=== PATIENT | female | born 1985 | race Caucasian/White ===

== ENCOUNTER 2016-12-02 17:12 | Inpatient (IN) | payer BC ==
[2016-12-02] MEDS ORDERED: Terbutaline 1 MG/ML SDV SUBCUT PRN (17:31)
[2016-12-02] MEDS ORDERED: Methylergonovine 0.2 MG/1 ML Amp IM PRN (17:37)
[2016-12-02] MEDS ORDERED: Nalbuphine 10 MG/1 ML Vial IVPUSH PRN (17:37)
[2016-12-02] MEDS ORDERED: Carboprost Tromethamine 250 MCG/1 ML Amp IM PRN (17:37)
[2016-12-02] MEDS ORDERED: Sodium Chloride 0.9% 2.5 ML Syringe FLUSH PRN (17:37)
[2016-12-02] MEDS ORDERED: Water For Irrigation,Sterile 1,000 ML Container IRR PRN (17:37)
[2016-12-02] MEDS ORDERED: Misoprostol 200 MCG Tab PO PRN (17:37)
[2016-12-02] MEDS ORDERED: Lidocaine 1% 50 ML MDV INJECT PRN (17:37)
[2016-12-02] MEDS ORDERED: Sodium Chloride 0.9% 10 ML Syringe FLUSH PRN (17:37)
[2016-12-02] MEDS ORDERED: Misoprostol 25 MCG (1/4 of 100 MCG) Tab VAG SCH (17:45)
[2016-12-02] MEDS ORDERED: Oxytocin/Lactated Ringers 30 UNIT/500 ML BAG IV SCH (17:45)
[2016-12-02] MEDS ORDERED: Labetalol 100 MG/20 ML MDV IVPUSH PRN (19:29)
[2016-12-03] MEDS: Misoprostol 25 MCG (1/4 of 100 MCG) Tab VAG PRN ×2 (00:16→04:16)
[2016-12-03] MEDS: Lactated Ringers 1,000 ML IV SCH ×3 (07:35→15:01)
[2016-12-03] MEDS: Butorphanol 1 MG/ML SDV IVPUSH PRN ×3 (10:03→14:29)
[2016-12-03] MEDS ORDERED: Ropivacaine HCl/PF 100 ML ONE ×2 (15:26→21:46)
[2016-12-03] MEDS ORDERED: fentaNYL 100 MCG/2 ML SDV ONE (15:26)
--- NOTE | 2016-12-03 15:29 | PCM.PREANE ---
Preanesthetic Assessment - ANESTHESIA/TRANSFUSION/FAMILY HX Anesthesia/Transfusion History: Prior Anesthesia - REVIEW OF SYSTEMS Constitutional: Reports: no symptoms BRICK SETTER: Reports: no symptoms Respiratory: Reports: no symptoms Cardiovascular: Reports: no symptoms GI: Reports: no symptoms Other: Reports: none - PHYSICAL ASSESSMENT Height: 5 ft 3 in Weight: 117.197 kg ASA Class: 2 Mental Status: alert & oriented x3 Airway Class: Mallampati = 2 Dentition: Reports: normal dentition Thyro-Mental Finger Breadths: 3 Mouth Opening Finger Breadths: 3 ROM/Head Extension: full Respiratory Status: lungs clear to auscultation bilaterally Cardiovascular Status: regular rate & rhythm, normal S1, S2, no murmur, blood pressure WNL - LAB Values: Laboratory Last Values WBC 10.65 K/uL (4.0-11.0) 12/02/16 17:55 RBC 4.49 M/uL (4.30-5.90) 12/02/16 17:55 Hgb 12.3 g/dL (12.0-16.0) 12/02/16 17:55 Hct 37.7 % (36.0-46.0) 12/02/16 17:55 MCV 84.0 fL (80.0-98.0) 12/02/16 17:55 MCH 27.4 pg (27.0-32.0) 12/02/16 17:55 MCHC 32.6 g/dL (31.0-37.0) 12/02/16 17:55 RDW Std Deviation 45.2 fl (28.0-62.0) 12/02/16 17:55 RDW Coeff of Thereas 15 % (11.0-15.0) 12/02/16 17:55 Plt Count 185 K/uL (150-400) 12/02/16 17:55 MPV 11.10 fL (7.40-12.00) 12/02/16 17:55 Nucleated RBC % 0.0 /100WBC 12/02/16 17:55 Nucleated RBCs # 0 K/uL 12/02/16 17:55 Urine Color YELLOW 12/02/16 18:20 Urine Appearance CLEAR 12/02/16 18:20 Urine pH 5.5 (5.0-8.0) 12/02/16 18:20 Ur Specific [place] >= 1.030 (1.001-1.035) 12/02/16 18:20 Urine Protein NEGATIVE mg/dL (NEGATIVE) 12/02/16 18:20 Urine Glucose (UA) NEGATIVE mg/dL (NEGATIVE) 12/02/16 18:20 Urine Ketones TRACE mg/dL (NEGATIVE) H 12/02/16 18:20 Urine Occult Blood NEGATIVE (NEGATIVE) 12/02/16 18:20 Urine Nitrite NEGATIVE (NEGATIVE) 12/02/16 18:20 Urine Bilirubin NEGATIVE (NEGATIVE) 12/02/16 18:20 Urine Urobilinogen 0.2 EU/dL (<2.0) 12/02/16 18:20 Ur Leukocyte Esterase NEGATIVE (NEGATIVE) 12/02/16 18:20 Urine RBC 0-1 (0-2/HPF) 12/02/16 18:20 Urine WBC 0-3 (0-5/HPF) 12/02/16 18:20 Ur Epithelial Cells FEW (NONE-FEW) 12/02/16 18:20 Urine Bacteria FEW (NEGATIVE) 12/02/16 18:20 Urine Mucus LIGHT (NONE-MOD) 12/02/16 18:20 Blood Type A POSITIVE 12/02/16 17:55 Antibody Screen NEGATIVE 12/02/16 17:55 - ALLERGIES Allergies/Adverse Reactions: Allergies Allergy/AdvReac Type Severity Reaction Status Date / Time No Known Allergies Allergy Verified 08/17/16 23:06 - ANESTHESIA PLAN Anesthesia Type Planned: epidural - ACKNOWLEDGEMENTS Pt an appropriate candidate for the planned anesthesia: Yes Alternatives and risks of anesthesia discussed w pt/guardian: Yes Pt/Guardian understands and agree with anesthesia plan: Yes PreAnesthesia Questionnaire HEENT History: Reports: None Cardiovascular History: Reports: None Respiratory History: Reports: None Gastrointestinal History: Reports: None Genitourinary History: Reports: None : 1 Para: 0 LMP (Approximate): Musculoskeletal History: Reports: None Neurological History: Reports: Concussion Psychiatric History: Reports: None Endocrine/Metabolic History: Reports: Obesity/BMI 30+ Hematologic History: Reports: None Immunologic History: Reports: None Oncologic (Cancer) History: Reports: None Dermatologic History: Reports: None - Infectious Disease History Infectious Disease History: Reports: None - Past Surgical History Cardiovascular Surgical History: Reports: None - SUBSTANCE USE Smoking Status *Q: Never Smoker Second Hand Smoke Exposure: No Days Per Week of Alcohol Use: 1 Number of Drinks Per Day: 2 Total Drinks Per Week: 2 Recreational Drug Use History: No - HOME MEDS Home Medications: Home Meds Control Pills DAILY 06/25/14 [History] Azithromycin [Zithromax] 250 mg PO DAILY #4 tablet 08/17/16 [Rx] Iron 08/17/16 [History] PNV95/Ferrous Fumarate/FA [ Tablet] 08/17/16 [History] - CURRENT (IN HOUSE) MEDS Current Meds: Current Medications Butorphanol Tartrate (Stadol) 1 mg IVPUSH Q1H PRN PRN Reason: Pain Last Admin: 12/03/16 14:29 Dose: 1 mg Carboprost Tromethamine (Hemabate Ds) 250 mcg IM ASDIRECTED PRN PRN Reason: Post Hemorrhage Oxytocin/Lactated Ringer's (Pitocin In Lr 30 Units/500 Ml) 30 unit in 500 mls @ 2 mls/hr IV TITRATE [place]; 2 MUNITS/MIN PRN Reason: Protocol Last Titration: 12/03/16 14:58 Dose: 10 munits/min, 10 mls/hr Lactated Ringer's (Ringers, Lactated) 1,000 mls @ 150 mls/hr IV ASDIRECTED [place] Last Admin: 12/03/16 15:01 Dose: 150 mls/hr Labetalol HCl (Normodyne) 20 mg IVPUSH Q10M PRN PRN Reason: Hypertension Lidocaine HCl (Xylocaine 1%) 50 ml INJECT .ONCE PRN PRN Reason: Laceration repair Methylergonovine Maleate (Methergine) 0.2 mg IM ASDIRECTED PRN PRN Reason: Post Hemorrhage Misoprostol (Cytotec) 25 mcg VAG .ONCE [place] Last Admin: 12/02/16 20:13 Dose: 25 mcg Misoprostol (Cytotec) 25 mcg VAG Q4H PRN PRN Reason: Cervical Ripening Stop: 12/03/16 21:32 Last Admin: 12/03/16 04:16 Dose: 25 mcg Misoprostol (Cytotec) 200 mcg PO .ONCE PRN PRN Reason: Post Hemorrhage Sodium Chloride (Saline Flush) 10 ml FLUSH ASDIRECTED PRN PRN Reason: Keep Vein Open Sodium Chloride (Saline Flush) 2.5 ml FLUSH ASDIRECTED PRN PRN Reason: Keep Vein Open Sterile Water (Sterile Water For Irrigation) 1,000 ml IRR ASDIRECTED PRN PRN Reason: delivery Terbutaline Sulfate (Brethine) 0.25 mg SUBCUT ASDIRECTED PRN PRN Reason: Tacysystole Discontinued Medications Nalbuphine HCl (Nubain) 10 mg IVPUSH Q1H PRN PRN Reason: Pain (severe 7-10) Stop: 12/02/16 19:38
[2016-12-04] MEDS ORDERED: Bupivacaine 0.5% 10 ML SDV ONE (00:47)
[2016-12-04] MEDS ORDERED: Sodium Chloride 0.9% 20 ML ONE (00:57)
[2016-12-04] MEDS ORDERED: ceFAZolin 1 GM Vial ONE (00:57)
[2016-12-04] MEDS ORDERED: Oxytocin 10 Units/1 ML SDV ONE (00:59)
[2016-12-04] MEDS ORDERED: Ondansetron 4 MG/2 ML SDV ONE (00:59)
[2016-12-04] MEDS ORDERED: Morphine PF 10 MG/10 ML SDV ONE (01:21)
[2016-12-04] MEDS ORDERED: fentaNYL 100 MCG/2 ML SDV ONE ×3 (01:21→02:48)
[2016-12-04] MEDS ORDERED: Midazolam 1 MG/ML 2 ML SDV ONE (01:45)
[2016-12-04] MEDS ORDERED: Propofol 200 MG/20 ML SDV ONE (02:04)
[2016-12-04] MEDS ORDERED: Phenylephrine/Normal Saline 100 MCG/ML 10 ML Syringe ONE (02:23)
[2016-12-04] MEDS ORDERED: diphenhydrAMINE 50 MG/ML SDV IVPUSH PRN ×2 (02:36→02:39)
[2016-12-04] MEDS ORDERED: Sodium Chloride 0.9% 10 ML Syringe FLUSH PRN (02:36)
[2016-12-04] MEDS ORDERED: Lanolin 100% Cream 7 GM Tube TOP PRN (02:36)
[2016-12-04] MEDS ORDERED: Ondansetron 4 MG/2 ML SDV IVPUSH PRN (02:36)
[2016-12-04] MEDS ORDERED: Acetaminophen/oxyCODONE 325-5 MG Tab PO PRN (02:36)
[2016-12-04] MEDS ORDERED: Sodium Chloride 0.9% 2.5 ML Syringe FLUSH PRN (02:36)
[2016-12-04] MEDS ORDERED: Measles, Mumps & Rubella Vaccine 0.5 ML SDV SUBCUT ONE (02:36)
[2016-12-04] MEDS ORDERED: Bisacodyl 10 MG Supp RECTAL PRN (02:36)
[2016-12-04] MEDS ORDERED: Naloxone 0.4 MG/ML Syringe IVPUSH PRN (02:39)
[2016-12-04] MEDS ORDERED: fentaNYL 100 MCG/2 ML SDV IVPUSH PRN (02:42)
[2016-12-04] MEDS ORDERED: Lactated Ringers 1,000 ML IV SCH (02:45)
--- NOTE | 2016-12-04 02:49 | PCM.OPNOTE ---
- General Post-Op/Procedure Note Date of Surgery/Procedure: 12/04/16 Operative Procedure(s): Primary section Findings: Male infant, OP, cord adjacent to the face, Apgars 9 and 9. Normal uterus, tubes and ovaries. Grossly normal placenta with 3 vessel cord. Pre Op Diagnosis: 1) 40 weeks 2) intolerance to labor Post-Op Diagnosis: Same Anesthesia Technique: Epidural Primary Surgeon: Sparkle Cohen Fluid Replacement, Intraop: 1,000 Output, Urine Amount: 250 EBL in mLs: 500 Complications: None Condition: Good Free Text/Narrative:: Intake & Output 12/03/16 12/03/16 12/04/16 14:59 22:59 06:59 Output Total 250 Balance -250
[2016-12-04] MEDS: fentaNYL 100 MCG/2 ML SDV IVPUSH PRN ×2 (02:50→03:00)
[2016-12-04] MEDS: Ketorolac 30 MG/ML SDV IVPUSH SCH ×4 (03:07→21:59)
--- NOTE | 2016-12-04 03:48 | OR ---
SURGEON: Sparkle Cohen MD DATE OF PROCEDURE: 12/04/2016 PREOPERATIVE DIAGNOSES: 1. Term at 40 weeks gestation. 2. intolerance to labor. POSTOPERATIVE DIAGNOSES: 1. Term at 40 weeks gestation. 2. intolerance to labor. 3. Delivered. PROCEDURE: Primary low transverse section via Pfannenstiel. ANESTHESIA: Epidural. ESTIMATED BLOOD LOSS: 500 mL. IV FLUID: 1000 mL of crystalloid. URINE OUTPUT: 250 mL clear at the end of the procedure. FINDINGS: Male , weight 4050 g. Deflexed occipito- posterior position, with cord laying adjacent to his face. Apgars 9 and 9 at 1 and 5 minutes respectively. Normal-appearing uterus, tubes, and ovaries. Grossly normal placenta with three-vessel cord. INDICATION: The patient is a 31-year-old primigravida admitted for induction of labor for polyhydramnios and suspected macrosomia. Unable to go up with oxytocin due to recurrent prolonged decelerations variables and lates despite intrapartum resuscitation and turning the oxytocin off a number of times. Maximum dose of Pitocin was 18mu/min with a maximum dilatation of 5cm section was called for intolerance to labor. Appropriate consent obtained PROCEDURE IN DETAIL: The patient was taken to the operating room, where her epidural was re-dosed, tested and found to be adequate. She was then prepped and draped in dorsal supine position with a leftward tilt. SCDs in place. Ancef 2 g administered. Appropriate time-out held. A skin incision was made with the scalpel and carried through to the underlying layer of fascia with the Bovie. The fascia was extended laterally with the Bovie. Superior aspect of the fascial incision was grasped with 2 Rick clamps, elevated, the underlying rectus muscle dissected off with the Bovie. Attention was turned to the inferior aspect of this fascial incision, which was also elevated with Rick clamps, and the rectus muscle dissected off with the Bovie. The rectus muscle was in the midline and the parietal peritoneum was reached, entered sharply with the Metzenbaum scissors. This peritoneal layer was then extended upwards and downwards with good visualization of the bladder and other internal organs. An Caleb self-retaining retractor was then placed into the abdominal cavity. The vesicouterine peritoneum identified, picked up with pickups, and entered sharply with Metzenbaum and the bladder flap was created digitally. The lower uterine segment was incised in a transverse fashion with the scalpel, extended upwards and downwards by manual stretching. was found to be deflexed occipital posterior position. The head was delivered atraumatically followed by the shoulders and the rest of the baby. The baby was vigorous and cried spontaneously at . Cord was double clamped and cut and the infant was handed over to the awaiting men's golf coach on-call, Dr. Ahuja. Cord blood and gas samples were obtained. The placenta was delivered spontaneously by massage. Uterus was cleaned of all clots and debris. The hysterotomy site was closed in 2 layers using 0 Vicryl suture, first layer was closed in a running locked fashion and a second imbricating layer was performed to obtain excellent hemostasis. Two hemostatic stitches were placed in the lower uterine segment for further hemostasis. The hysterotomy site was found to have excellent hemostasis. Copious irrigation was performed. Tubes and ovaries were examined. The Caleb was removed from the abdominal cavity. Hysterotomy site was re-examined and found to be hemostatic. Peritoneal edges were identified and the peritoneum was closed with 2-0 Vicryl in a running fashion. The muscle was reapproximated with 3 mattress sutures. Subfascial tissue was irrigated and found to have excellent hemostasis. The fascia was closed with 0 Vicryl in a running fashion. The subcuticular layer was made hemostatic with the Bovie. The skin was then closed with 4-0 Monocryl using subcuticular stitches. The patient tolerated the procedure well and was taken to the recovery room in stable condition. Baby stable to nursery. LEONARDA / LUDIN /[id number] MAEGAN
--- NOTE | 2016-12-04 03:51 | PCM.POSTAN ---
POST ANESTHESIA ASSESSMENT - MENTAL STATUS Mental Status: alert, oriented - RESPIRATORY Respiratory Status: respiratory rate WNL, airway patent, O2 saturation stable - CARDIOVASCULAR CV Status: pulse rate WNL, blood pressure stable - GASTROINTESTINAL GI Status: no symptoms - POST OP HYDRATION Hydration Status: adequate & stable
[2016-12-04] MEDS: Docusate Sodium 100 MG Cap PO SCH ×2 (09:14→22:00)
--- NOTE | 2016-12-04 11:56 | PCM48HPAN ---
Post Anesthesia Note - EVALUATION WITHIN 48HRS OF ANESTHETIC Vital Signs in Normal Range: Yes Patient Participated in Evaluation: Yes Respiratory Function Stable: Yes Airway Patent: Yes Cardiovascular Function Stable: Yes Hydration Status Stable: Yes Pain Control Satisfactory: Yes Nausea and Vomiting Control Satisfactory: Yes Mental Status Recovered: Yes - COMMENTS/OBSERVATIONS Free Text/Narrative:: Pt doing well with no complaints.
[2016-12-05] MEDS: Ketorolac 30 MG/ML SDV IVPUSH SCH (04:12)
[2016-12-05] MEDS: Docusate Sodium 100 MG Cap PO SCH ×2 (09:00→22:42)
[2016-12-05] MEDS ORDERED: Ibuprofen 800 MG Tab PO PRN (09:00)
--- NOTE | 2016-12-05 09:05 | PCM.PNPP ---
- General Info Date of Service: 12/05/16 Functional Status: Reports: pain controlled, tolerating diet, ambulating, urinating - Review of Systems General: Denies: fever, weakness, fatigue, chills Pulmonary: Denies: shortness of breath, pleuritic chest pain, cough, sputum Cardiovascular: Denies: chest pain, palpitations, dyspnea on exertion Genitourinary: Denies: dysuria, flank pain Neurological: Denies: headache Psychiatric: Denies: depression, mood lability, anxiety - General Info Date of Service: 12/05/16 - Patient Data Vital Signs - most recent: Last Vital Signs Temp 36.9 C 12/05/16 04:00 Pulse 107 H 12/05/16 04:00 Resp 14 12/05/16 04:00 BP 133/78 12/05/16 04:00 Pulse Ox 95 12/05/16 04:00 Weight - most recent: 258 lb 6 oz I&O - last 24 hours: Intake & Output 12/04/16 12/05/16 12/05/16 22:59 06:59 14:59 Intake Total 990 Output Total 250 Balance 740 Lab Results - last 24 hrs: Laboratory Results - last 24 hr 12/05/16 Range/Units 05:09 Hgb 10.7 L (12.0-16.0) g/dL Hct 33.1 L (36.0-46.0) % Med Orders - Current: Current Medications Bisacodyl (Dulcolax) 10 mg RECTAL .ONCE PRN PRN Reason: Constipation Diphenhydramine HCl (Benadryl) 25 mg IVPUSH Q6H PRN PRN Reason: Itching or Nausea Docusate Sodium (Colace) 100 mg PO BID [facility] Last Admin: 12/05/16 09:00 Dose: 100 mg Emollient Ointment (Lansinoh Hpa) 0 gm TOP ASDIRECTED PRN PRN Reason: Sore Nipples Lactated Ringer's (Ringers, Lactated) 1,000 mls @ 125 mls/hr IV ASDIRECTED [facility] Last Admin: 12/04/16 08:30 Dose: 125 mls/hr Ibuprofen (Motrin) 800 mg PO Q8H PRN PRN Reason: mild pain or fever Ondansetron HCl (Zofran) 4 mg IVPUSH Q4H PRN PRN Reason: Nausea/Vomiting Oxycodone/Acetaminophen (Percocet 325-5 Mg) 1 tab PO Q4H PRN PRN Reason: Pain (moderate 4-6) Oxycodone/Acetaminophen (Percocet 325-5 Mg) 2 tab PO Q4H PRN PRN Reason: Pain (moderate 4-6) Sodium Chloride (Saline Flush) 10 ml FLUSH ASDIRECTED PRN PRN Reason: Keep Vein Open Last Admin: 12/04/16 16:02 Dose: 10 ml Sodium Chloride (Saline Flush) 2.5 ml FLUSH ASDIRECTED PRN PRN Reason: Keep Vein Open Discontinued Medications Bupivacaine HCl (Sensorcaine-Mpf 0.5%) Confirm Administered Dose 20 ml .ROUTE .STK-MED ONE Stop: 12/04/16 00:48 Last Admin: 12/04/16 08:19 Dose: Not Given Butorphanol Tartrate (Stadol) 1 mg IVPUSH Q1H PRN PRN Reason: Pain Last Admin: 12/03/16 14:29 Dose: 1 mg Carboprost Tromethamine (Hemabate Ds) 250 mcg IM ASDIRECTED PRN PRN Reason: Post Hemorrhage Cefazolin Sodium (Ancef) Confirm Administered Dose 2 gm .ROUTE .STK-MED ONE Stop: 12/04/16 00:58 Diphenhydramine HCl (Benadryl) 25 mg IVPUSH Q4H PRN PRN Reason: Itching Stop: 12/05/16 02:40 Fentanyl (Sublimaze) Confirm Administered Dose 100 mcg .ROUTE .STK-MED ONE Stop: 12/03/16 15:27 Last Admin: 12/04/16 08:18 Dose: Not Given Fentanyl (Sublimaze) Confirm Administered Dose 100 mcg .ROUTE .STK-MED ONE Stop: 12/04/16 01:22 Fentanyl (Sublimaze) Confirm Administered Dose 100 mcg .ROUTE .STK-MED ONE Stop: 12/04/16 01:34 Fentanyl (Sublimaze) 50 mcg IVPUSH Q5M PRN PRN Reason: Pain (severe 7-10) Stop: 12/04/16 04:00 Last Admin: 12/04/16 03:00 Dose: 50 mcg Fentanyl (Sublimaze) 50 mcg IVPUSH Q45M PRN PRN Reason: Pain (severe 7-10) Stop: 12/05/16 02:42 Fentanyl (Sublimaze) Confirm Administered Dose 100 mcg .ROUTE .STK-MED ONE Stop: 12/04/16 02:49 Last Admin: 12/04/16 08:17 Dose: Not Given Oxytocin/Lactated Ringer's (Pitocin In Lr 30 Units/500 Ml) 30 unit in 500 mls @ 2 mls/hr IV TITRATE [place]; 2 MUNITS/MIN PRN Reason: Protocol Last Titration: 12/04/16 00:26 Dose: 0 munits/min, 0 mls/hr Lactated Ringer's (Ringers, Lactated) 1,000 mls @ 150 mls/hr IV ASDIRECTED [place] Last Admin: 12/03/16 15:01 Dose: 150 mls/hr Ropivacaine (Naropin 0.2%) Confirm Administered Dose 100 mls @ as directed .ROUTE .STK-MED ONE Stop: 12/03/16 15:27 Last Admin: 12/04/16 08:18 Dose: Not Given Ropivacaine (Naropin 0.2%) Confirm Administered Dose 100 mls @ as directed .ROUTE .STK-MED ONE Stop: 12/03/16 21:47 Last Admin: 12/04/16 08:19 Dose: Not Given Sodium Chloride (Normal Saline) Confirm Administered Dose 20 mls @ as directed .ROUTE .STK-MED ONE Stop: 12/04/16 00:58 Ketorolac Tromethamine (Toradol) 30 mg IVPUSH Q6H [place] Stop: 12/05/16 03:01 Last Admin: 12/05/16 04:12 Dose: 30 mg Labetalol HCl (Normodyne) 20 mg IVPUSH Q10M PRN PRN Reason: Hypertension Lidocaine HCl (Xylocaine 1%) 50 ml INJECT .ONCE PRN PRN Reason: Laceration repair Measles/Mumps/Rubella Vaccine Live (M-M-R Ii Vaccine) 0.5 ml SUBCUT .ONCE ONE Stop: 12/04/16 02:37 Methylergonovine Maleate (Methergine) 0.2 mg IM ASDIRECTED PRN PRN Reason: Post Hemorrhage Midazolam HCl (Versed 1 Mg/Ml) Confirm Administered Dose 2 mg .ROUTE .STK-MED ONE Stop: 12/04/16 01:46 Misoprostol (Cytotec) 25 mcg VAG .ONCE [place] Last Admin: 12/02/16 20:13 Dose: 25 mcg Misoprostol (Cytotec) 25 mcg VAG Q4H PRN PRN Reason: Cervical Ripening Stop: 12/03/16 21:32 Last Admin: 12/03/16 04:16 Dose: 25 mcg Misoprostol (Cytotec) 200 mcg PO .ONCE PRN PRN Reason: Post Hemorrhage Morphine Sulfate (Duramorph Pf) Confirm Administered Dose 10 mg .ROUTE .STK-MED ONE Stop: 12/04/16 01:22 Nalbuphine HCl (Nubain) 10 mg IVPUSH Q1H PRN PRN Reason: Pain (severe 7-10) Stop: 12/02/16 19:38 Naloxone HCl (Narcan) 0.1 mg IVPUSH ONETIME PRN PRN Reason: Respiratory Depression Stop: 12/05/16 02:40 Ondansetron HCl (Zofran) Confirm Administered Dose 4 mg .ROUTE .STK-MED ONE Stop: 12/04/16 01:00 Oxytocin (Pitocin) Confirm Administered Dose 20 unit .ROUTE .STK-MED ONE Stop: 12/04/16 01:00 Phenylephrine HCl (Phenylephrine In Ns 100 Mcg/Ml) Confirm Administered Dose 1 mg .ROUTE .STK-MED ONE Stop: 12/04/16 02:24 Propofol (Diprivan 20 Ml) Confirm Administered Dose 200 mg .ROUTE .STK-MED ONE Stop: 12/04/16 02:05 Sodium Chloride (Saline Flush) 10 ml FLUSH ASDIRECTED PRN PRN Reason: Keep Vein Open Sodium Chloride (Saline Flush) 2.5 ml FLUSH ASDIRECTED PRN PRN Reason: Keep Vein Open Sterile Water (Sterile Water For Irrigation) 1,000 ml IRR ASDIRECTED PRN PRN Reason: delivery Terbutaline Sulfate (Brethine) 0.25 mg SUBCUT ASDIRECTED PRN PRN Reason: Tacysystole - Infant Interaction Infant Disposition, : [place] at Bedside Feeding: Breastfed ; Nursed Well, Continues to Breastfeed Support Person: - Recovery Exam Fundal Tone: Firm Fundal Level: 1 Fingerbreadths Below Umbilicus Fundal Placement: Midline Lochia Amount: Scant Lochia Color: Rubra/Red Perineum Description: Intact, Minimal Bruising/Swelling Episiotomy/Laceration: None Bladder Status: Voiding Urinary Elimination: Voided - Exam General: alert, oriented Lungs: Clear to auscultation, Normal respiratory effort Cardiovascular: regular rate, regular rhythm Abdomen: bowel sounds present, soft, no tenderness, no distension Extremities: no calf tenderness, edema Wound/Incisions: healing well Psy/Mental Status: alert, normal affect, normal mood - Problem List & Annotations (1) delivery delivered SNOMED Code(s): 939294645 Code(s): O82 - ENCOUNTER FOR DELIVERY WITHOUT INDICATION Status: Acute Current Visit: Yes - Problem List Review Problem List Initiated/Reviewed/Updated: Yes - My Orders Last 24 Hours: My Active Orders 12/04/16 09:00 Docusate Sodium [Colace] 100 mg PO BID 12/05/16 09:00 Ibuprofen [Motrin] 800 mg PO Q8H PRN - Assessment Assessment:: POD#1 s/p primary , stable and afebrile - Plan Plan:: Continue routine care and aim for discharge tomorrow
[2016-12-05] MEDS: Acetaminophen/oxyCODONE 325-5 MG Tab PO PRN ×3 (13:00→22:42)
[2016-12-06] MEDS: Acetaminophen/oxyCODONE 325-5 MG Tab PO PRN ×2 (04:57→09:27)
--- NOTE | 2016-12-06 08:00 | PCM.PNPP ---
- General Info Date of Service: 12/06/16 Functional Status: Reports: pain controlled, ambulating, urinating - Review of Systems General: Denies: fever, weakness, fatigue, malaise HEENT: Denies: headaches Pulmonary: Denies: shortness of breath, pleuritic chest pain, cough Cardiovascular: Denies: chest pain, palpitations, dyspnea on exertion Gastrointestinal: Denies: Abdominal pain Genitourinary: Denies: dysuria, incontinence, flank pain Neurological: Denies: dizziness Psychiatric: Denies: confusion, depression, anxiety - General Info Date of Service: 12/06/16 - Patient Data Vital Signs - most recent: Last Vital Signs Temp 36.7 C 12/06/16 05:17 Pulse 97 12/06/16 05:17 Resp 17 12/06/16 05:17 BP 137/87 12/06/16 05:17 Pulse Ox 96 12/06/16 05:17 Weight - most recent: 258 lb 6 oz Med Orders - Current: Current Medications Bisacodyl (Dulcolax) 10 mg RECTAL .ONCE PRN PRN Reason: Constipation Diphenhydramine HCl (Benadryl) 25 mg IVPUSH Q6H PRN PRN Reason: Itching or Nausea Docusate Sodium (Colace) 100 mg PO BID [facility] Last Admin: 12/05/16 22:42 Dose: 100 mg Emollient Ointment (Lansinoh Hpa) 0 gm TOP ASDIRECTED PRN PRN Reason: Sore Nipples Lactated Ringer's (Ringers, Lactated) 1,000 mls @ 125 mls/hr IV ASDIRECTED [facility] Last Admin: 12/04/16 08:30 Dose: 125 mls/hr Ibuprofen (Motrin) 800 mg PO Q8H PRN PRN Reason: mild pain or fever Ondansetron HCl (Zofran) 4 mg IVPUSH Q4H PRN PRN Reason: Nausea/Vomiting Oxycodone/Acetaminophen (Percocet 325-5 Mg) 1 tab PO Q4H PRN PRN Reason: Pain (moderate 4-6) Last Admin: 12/06/16 04:57 Dose: 1 tab Oxycodone/Acetaminophen (Percocet 325-5 Mg) 2 tab PO Q4H PRN PRN Reason: Pain (moderate 4-6) Sodium Chloride (Saline Flush) 10 ml FLUSH ASDIRECTED PRN PRN Reason: Keep Vein Open Last Admin: 12/04/16 16:02 Dose: 10 ml Sodium Chloride (Saline Flush) 2.5 ml FLUSH ASDIRECTED PRN PRN Reason: Keep Vein Open Discontinued Medications Bupivacaine HCl (Sensorcaine-Mpf 0.5%) Confirm Administered Dose 20 ml .ROUTE .STK-MED ONE Stop: 12/04/16 00:48 Last Admin: 12/04/16 08:19 Dose: Not Given Butorphanol Tartrate (Stadol) 1 mg IVPUSH Q1H PRN PRN Reason: Pain Last Admin: 12/03/16 14:29 Dose: 1 mg Carboprost Tromethamine (Hemabate Ds) 250 mcg IM ASDIRECTED PRN PRN Reason: Post Hemorrhage Cefazolin Sodium (Ancef) Confirm Administered Dose 2 gm .ROUTE .STK-MED ONE Stop: 12/04/16 00:58 Diphenhydramine HCl (Benadryl) 25 mg IVPUSH Q4H PRN PRN Reason: Itching Stop: 12/05/16 02:40 Fentanyl (Sublimaze) Confirm Administered Dose 100 mcg .ROUTE .STK-MED ONE Stop: 12/03/16 15:27 Last Admin: 12/04/16 08:18 Dose: Not Given Fentanyl (Sublimaze) Confirm Administered Dose 100 mcg .ROUTE .STK-MED ONE Stop: 12/04/16 01:22 Fentanyl (Sublimaze) Confirm Administered Dose 100 mcg .ROUTE .STK-MED ONE Stop: 12/04/16 01:34 Fentanyl (Sublimaze) 50 mcg IVPUSH Q5M PRN PRN Reason: Pain (severe 7-10) Stop: 12/04/16 04:00 Last Admin: 12/04/16 03:00 Dose: 50 mcg Fentanyl (Sublimaze) 50 mcg IVPUSH Q45M PRN PRN Reason: Pain (severe 7-10) Stop: 12/05/16 02:42 Fentanyl (Sublimaze) Confirm Administered Dose 100 mcg .ROUTE .STK-MED ONE Stop: 12/04/16 02:49 Last Admin: 12/04/16 08:17 Dose: Not Given Oxytocin/Lactated Ringer's (Pitocin In Lr 30 Units/500 Ml) 30 unit in 500 mls @ 2 mls/hr IV TITRATE [place]; 2 MUNITS/MIN PRN Reason: Protocol Last Titration: 12/04/16 00:26 Dose: 0 munits/min, 0 mls/hr Lactated Ringer's (Ringers, Lactated) 1,000 mls @ 150 mls/hr IV ASDIRECTED [facility] Last Admin: 12/03/16 15:01 Dose: 150 mls/hr Ropivacaine (Naropin 0.2%) Confirm Administered Dose 100 mls @ as directed .ROUTE .STK-MED ONE Stop: 12/03/16 15:27 Last Admin: 12/04/16 08:18 Dose: Not Given Ropivacaine (Naropin 0.2%) Confirm Administered Dose 100 mls @ as directed .ROUTE .STK-MED ONE Stop: 12/03/16 21:47 Last Admin: 12/04/16 08:19 Dose: Not Given Sodium Chloride (Normal Saline) Confirm Administered Dose 20 mls @ as directed .ROUTE .STK-MED ONE Stop: 12/04/16 00:58 Ketorolac Tromethamine (Toradol) 30 mg IVPUSH Q6H [place] Stop: 12/05/16 03:01 Last Admin: 12/05/16 04:12 Dose: 30 mg Labetalol HCl (Normodyne) 20 mg IVPUSH Q10M PRN PRN Reason: Hypertension Lidocaine HCl (Xylocaine 1%) 50 ml INJECT .ONCE PRN PRN Reason: Laceration repair Measles/Mumps/Rubella Vaccine Live (M-M-R Ii Vaccine) 0.5 ml SUBCUT .ONCE ONE Stop: 12/04/16 02:37 Methylergonovine Maleate (Methergine) 0.2 mg IM ASDIRECTED PRN PRN Reason: Post Hemorrhage Midazolam HCl (Versed 1 Mg/Ml) Confirm Administered Dose 2 mg .ROUTE .STK-MED ONE Stop: 12/04/16 01:46 Misoprostol (Cytotec) 25 mcg VAG .ONCE [facility] Last Admin: 12/02/16 20:13 Dose: 25 mcg Misoprostol (Cytotec) 25 mcg VAG Q4H PRN PRN Reason: Cervical Ripening Stop: 12/03/16 21:32 Last Admin: 12/03/16 04:16 Dose: 25 mcg Misoprostol (Cytotec) 200 mcg PO .ONCE PRN PRN Reason: Post Hemorrhage Morphine Sulfate (Duramorph Pf) Confirm Administered Dose 10 mg .ROUTE .STK-MED ONE Stop: 12/04/16 01:22 Nalbuphine HCl (Nubain) 10 mg IVPUSH Q1H PRN PRN Reason: Pain (severe 7-10) Stop: 12/02/16 19:38 Naloxone HCl (Narcan) 0.1 mg IVPUSH ONETIME PRN PRN Reason: Respiratory Depression Stop: 12/05/16 02:40 Ondansetron HCl (Zofran) Confirm Administered Dose 4 mg .ROUTE .STK-MED ONE Stop: 12/04/16 01:00 Oxytocin (Pitocin) Confirm Administered Dose 20 unit .ROUTE .STK-MED ONE Stop: 12/04/16 01:00 Phenylephrine HCl (Phenylephrine In Ns 100 Mcg/Ml) Confirm Administered Dose 1 mg .ROUTE .STK-MED ONE Stop: 12/04/16 02:24 Propofol (Diprivan 20 Ml) Confirm Administered Dose 200 mg .ROUTE .STK-MED ONE Stop: 12/04/16 02:05 Sodium Chloride (Saline Flush) 10 ml FLUSH ASDIRECTED PRN PRN Reason: Keep Vein Open Sodium Chloride (Saline Flush) 2.5 ml FLUSH ASDIRECTED PRN PRN Reason: Keep Vein Open Sterile Water (Sterile Water For Irrigation) 1,000 ml IRR ASDIRECTED PRN PRN Reason: delivery Terbutaline Sulfate (Brethine) 0.25 mg SUBCUT ASDIRECTED PRN PRN Reason: Tacysystole - Infant Interaction Infant Disposition, : at Bedside Feeding: Breastfed Infant; Nursed Well, Continues to Breastfeed Support Person: - Recovery Exam Fundal Tone: Firm Fundal Level: 1 Fingerbreadths Below Umbilicus Fundal Placement: Midline Lochia Amount: Scant Lochia Color: Rubra/Red Perineum Description: Intact, Minimal Bruising/Swelling Episiotomy/Laceration: None Bladder Status: Voiding Urinary Elimination: Voided - Exam General: alert, oriented Lungs: Clear to auscultation, Normal respiratory effort Cardiovascular: regular rate, regular rhythm Abdomen: bowel sounds present, soft, no tenderness, no distension Extremities: no calf tenderness, edema Wound/Incisions: healing well Psy/Mental Status: alert, normal affect, normal mood - Problem List & Annotations (1) delivery delivered SNOMED Code(s): 432466364 Code(s): O82 - ENCOUNTER FOR DELIVERY WITHOUT INDICATION Status: Acute Current Visit: Yes - Problem List Review Problem List Initiated/Reviewed/Updated: Yes - My Orders Last 24 Hours: My Active Orders 12/05/16 09:00 Ibuprofen [Motrin] 800 mg PO Q8H PRN - Assessment Assessment:: POD#2 s/p primary , for intolerance to labor, stable and afebrile Clinically stable for discharge today - Plan Plan:: Discharge instructions reviewed Nothing in the vagina for 6 weeks Bleeding and infection precautions reviewed Care of incision reviewed Pain meds prescriptions given Continue PNV Follow up in 2 and 6 weeks
[2016-12-06] MEDS: Docusate Sodium 100 MG Cap PO SCH (09:28)
[2016-12-06 09:54] VITALS: BP 132/86
== END 2016-12-06 12:55 | disposition home or self-care (01) | DRG 540 ==
LOC: MW.OBCHECK 17:12 → MW.OB 17:13 → UNDOADMOB 17:13 → MW.OB 17:15 → INTOOBSV 12-04 01:29 → OBSVTOIN 12-04 01:29 → MW.OB 12-04 04:25
PROVIDERS: ADMIT Obstetrics & Gynecology; ATTEND Obstetrics & Gynecology
PROC: 10D00Z1 Extraction of Products of Conception, Low, Open Approach (ICD-10-PCS; principal; 2016-12-04)
PROC: 00HU33Z Insertion of Infusion Device into Spinal Canal, Percutaneous Approach (ICD-10-PCS; 2016-12-04)
PROC: 3E0R3CZ (ICD-10-PCS; 2016-12-04)
DX: O40.3XX0 Polyhydramnios, third trimester, not applicable or unspecified (principal); O76 Abnormality in fetal heart rate and rhythm complicating labor and delivery; O36.63X0 Maternal care for excessive fetal growth, third trimester, not applicable or unspecified; Z3A.40 40 weeks gestation of pregnancy; Z37.0 Single live birth
CPT/HCPCS: 01967; 01968; 36415; 59025; 81001; 85014; 85018; 85027; 86850; 86900; 86901; A9270-GY; J0595; J0690; J1885; J2250; J2270; J2405; J2590; J2704; J2795; J3010; J7120

== ENCOUNTER 2018-12-05 05:23 | Inpatient (IN) | payer BC ==
[2018-12-05] MEDS ORDERED: Sodium Chloride 0.9% 10 ML Syringe FLUSH PRN (05:31)
[2018-12-05] MEDS ORDERED: Sodium Chloride 0.9% 10 ML SDV IV PRN (05:31)
[2018-12-05] MEDS ORDERED: Sodium Chloride 0.9% 2.5 ML Syringe FLUSH PRN (05:31)
[2018-12-05] MEDS ORDERED: Citric Acid/Sodium Citrate Solution 30 ML Cup PO ONE (05:31)
[2018-12-05] MEDS ORDERED: ceFAZolin 2 GM in Premix Bag 1 BAG IV ONE (05:31)
[2018-12-05] MEDS: Lactated Ringers 1,000 ML IV SCH ×2 (05:38→06:17)
[2018-12-05] MEDS ORDERED: Oxytocin/0.9 % Sodium Chloride 30 UNIT/500 ML BAG IV SCH (05:45)
--- NOTE | 2018-12-05 06:56 | PCM.PREANE ---
Preanesthetic Assessment - Procedure Proposed Procedure: c/s - Anesthesia/Transfusion/Family Hx Anesthesia History: Prior Anesthesia Without Reaction Family History of Anesthesia Reaction: No Transfusion History: Prior Transfusion Reaction Intubation History: Unknown - Review of Systems General: No Symptoms Pulmonary: No Symptoms Cardiovascular: Other (high blood pressure Systolic 130-140's) Gastrointestinal: Other (obese) Neurological: No Symptoms Other: Reports: None - Physical Assessment Height: 5 ft 3 in Weight: 117.027 kg ASA Class: 2 Mental Status: Alert & Oriented x3 Airway Class: Mallampati = 2 Dentition: Reports: Normal Dentition ROM/Head Extension: Full Lungs: Clear to Auscultation Cardiovascular: Regular Rate - Lab Values: Laboratory Last Values WBC 9.32 K/uL (4.0-11.0) 12/04/18 10:41 RBC 4.85 M/uL (4.30-5.90) 12/04/18 10:41 Hgb 13.4 g/dL (12.0-16.0) 12/04/18 10:41 Hct 41.2 % (36.0-46.0) 12/04/18 10:41 MCV 84.9 fL (80.0-98.0) 12/04/18 10:41 MCH 27.6 pg (27.0-32.0) 12/04/18 10:41 MCHC 32.5 g/dL (31.0-37.0) 12/04/18 10:41 RDW Std Deviation 44.5 fl (28.0-62.0) 12/04/18 10:41 RDW Coeff of Theresa 14 % (11.0-15.0) 12/04/18 10:41 Plt Count 181 K/uL (150-400) 12/04/18 10:41 MPV 11.20 fL (7.40-12.00) 12/04/18 10:41 Nucleated RBC % 0.0 /100WBC 12/04/18 10:41 Nucleated RBCs # 0 K/uL 12/04/18 10:41 Blood Type A POSITIVE 12/04/18 10:41 Antibody Screen NEGATIVE 12/04/18 10:41 - Allergies Allergies/Adverse Reactions: Allergies Allergy/AdvReac Type Severity Reaction Status Date / Time No Known Allergies Allergy Verified 12/03/18 07:40 - Blood Blood Available: No Product(s) Available: None - Anesthesia Plan Pre-Op Medication Ordered: Antacids - Acknowledgements Anesthesia Type Planned: Spinal Pt an Appropriate Candidate for the Planned Anesthesia: Yes Alternatives and Risks of Anesthesia Discussed w Pt/Guardian: Yes Pt/Guardian Understands and Agrees with Anesthesia Plan: Yes PreAnesthesia Questionnaire HEENT History: Reports: Other (See Below) Other HEENT History: wears glasses/contacts Cardiovascular History: Reports: Other (See Below) Other Cardiovascular History: states her"BP has been slightly elevated the last 2 weeks of this " Respiratory History: Reports: None Gastrointestinal History: Reports: None Genitourinary History: Reports: None 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: Reports: Musculoskeletal History: Reports: None Neurological History: Reports: Concussion Psychiatric History: Reports: None Endocrine/Metabolic History: Reports: Obesity/BMI 30+ Hematologic History: Reports: None Immunologic History: Reports: None Oncologic (Cancer) History: Reports: None Dermatologic History: Reports: None - Infectious Disease History Infectious Disease History: Reports: None - Past Surgical History Head Surgeries/Procedures: Reports: None HEENT Surgical History: Reports: Oral Surgery Cardiovascular Surgical History: Reports: None Female Surgical History: Reports: Section Musculoskeletal Surgical History: Reports: Other (See Below) Other Musculoskeletal Surgeries/Procedures:: left ganglion cyst removal - SUBSTANCE USE Smoking Status *Q: Never Smoker Second Hand Smoke Exposure: No Recreational Drug Use History: No - HOME MEDS Home Medications: Home Meds Iron 10 mg CHEW DAILY 08/17/16 [History] PNV95/Ferrous Fumarate/FA [ Tablet] 1 tab PO DAILY 08/17/16 [History] Acetaminophen [Tylenol Extra Strength] 1 - 2 tab PO ASDIRECTED PRN 11/26/18 [ History] Biotin 1 tab PO DAILY 11/26/18 [History] Cetirizine [ZyrTEC] 1 tab PO DAILY 11/26/18 [History] Vit D3/Folic Acid/B2/B6/B12 [Folgard Tablet] 1 tab PO DAILY 11/26/18 [History] - CURRENT (IN HOUSE) MEDS Current Meds: Current Medications Lactated Ringer's (Ringers, Lactated) 1,000 mls @ 500 mls/hr IV BOLUS [place] Last Admin: 12/05/18 06:17 Dose: 999 mls/hr Oxytocin/Sodium Chloride (Oxytocin 30 Unit/500 Ml-Ns) 30 unit in 500 mls @ 250 mls/hr IV TITRATE [place] Sodium Chloride (Saline Flush) 10 ml FLUSH ASDIRECTED PRN PRN Reason: Keep Vein Open Sodium Chloride (Saline Flush) 2.5 ml FLUSH ASDIRECTED PRN PRN Reason: Keep Vein Open Sodium Chloride (Normal Saline) 10 ml IV ASDIRECTED PRN PRN Reason: IV Use Discontinued Medications Citric Acid/Sodium Citrate (Bicitra Solution) 30 ml PO ONETIME ONE Stop: 12/05/18 05:32 Cefazolin Sodium/Dextrose 2 gm (/ Premix) 50 mls @ 100 mls/hr IV ONETIME ONE Stop: 12/05/18 06:00
[2018-12-05] MEDS ORDERED: Morphine PF 10 MG/10 ML SDV ONE (06:58)
[2018-12-05] MEDS ORDERED: fentaNYL 100 MCG/2 ML SDV IVPUSH PRN ×2 (07:23→09:24)
[2018-12-05] MEDS ORDERED: Meperidine PF 50 MG/ML Syringe IVPUSH ONE (07:23)
[2018-12-05] MEDS ORDERED: Acetaminophen/oxyCODONE 325-5 MG Tab PO PRN ×2 (07:23→09:24)
[2018-12-05] MEDS ORDERED: HYDROmorphone 2 MG/ML Syringe IVPUSH ONE (07:23)
[2018-12-05] MEDS ORDERED: Ondansetron 4 MG/2 ML SDV IVPUSH ONE (07:23)
[2018-12-05] MEDS ORDERED: Acetaminophen/HYDROcodone 325-5 MG Tab PO PRN (07:23)
[2018-12-05] MEDS ORDERED: Octyl 2-Cyanoacrylate 1 Tube ONE (07:25)
[2018-12-05] MEDS ORDERED: Oxytocin 10 Units/1 ML SDV ONE (08:08)
[2018-12-05] MEDS ORDERED: Phenylephrine/Normal Saline 100 MCG/ML 10 ML Syringe ONE (08:08)
[2018-12-05] MEDS ORDERED: ePHEDrine 50 MG/ML SDV ONE (08:14)
[2018-12-05] MEDS ORDERED: ceFAZolin/Dextrose,Iso-Osmotic 2 GM/50 ML Duplex Bag IV ONE (08:15)
[2018-12-05] MEDS ORDERED: Sodium Chloride 0.9% 20 ML ONE (08:15)
[2018-12-05] MEDS ORDERED: Oxytocin/0.9 % Sodium Chloride 30 UNIT/500 ML BAG ONE ×2 (08:15→08:37)
[2018-12-05] MEDS ORDERED: Ketorolac 30 MG/ML SDV ONE (08:26)
--- NOTE | 2018-12-05 08:38 | PCM.OPNOTE ---
- General Post-Op/Procedure Note Date of Surgery/Procedure: 12/05/18 Operative Procedure(s): repeat low transverse Findings: Liveborn male 8/9 weight pending, normal pelvis. Pre Op Diagnosis: 39 weeks prior , declines VTOL, transient hypertension of . Post-Op Diagnosis: Same Anesthesia Technique: Spinal Primary Surgeon: Shellie Casiano Secondary Surgeon: Vikki Carolina Anesthesia Provider: Lamine Sin Front Desk Monitor: Nettie Ferris Pathology: none Fluid Replacement, Intraop: 1,000 EBL in mLs: 500 Complications: None Known Condition: Good
[2018-12-05] MEDS ORDERED: Lanolin 100% Cream 7 GM Tube TOP PRN (08:41)
[2018-12-05] MEDS ORDERED: Bisacodyl 10 MG Supp RECTAL PRN (08:41)
[2018-12-05] MEDS ORDERED: Ondansetron 4 MG/2 ML SDV IVPUSH PRN ×2 (08:41→09:24)
[2018-12-05] MEDS ORDERED: diphenhydrAMINE 50 MG/ML SDV IVPUSH PRN ×2 (08:41→09:24)
[2018-12-05] MEDS ORDERED: Lactated Ringers 1,000 ML IV SCH (08:45)
[2018-12-05] MEDS ORDERED: Naloxone 0.4 MG/ML Syringe IVPUSH PRN (09:24)
[2018-12-05] MEDS ORDERED: Nalbuphine 10 MG/1 ML Vial IVPUSH PRN (09:24)
[2018-12-05] MEDS: Docusate Sodium 100 MG Cap PO SCH ×2 (12:08→20:50)
[2018-12-05] MEDS: Ketorolac 30 MG/ML SDV IVPUSH SCH ×3 (12:08→20:50)
--- NOTE | 2018-12-05 13:49 | OR ---
SURGEON: Shellie Casiano M.D. DATE OF PROCEDURE: 12/05/2018 PREOPERATIVE DIAGNOSES: 1. 39 weeks' intrauterine . 2. Transient hypertension of . 3. Prior delivery. 4. Declines vaginal trial of labor. POSTOPERATIVE DIAGNOSES: 1. 39 weeks' intrauterine . 2. Transient hypertension of . 3. Prior delivery. 4. Declines vaginal trial of labor. PROCEDURE: Repeat low-transverse section. ASSISTED LIVING COORDINATOR: MD Debby. ANESTHESIA: Spinal. ESTIMATED BLOOD LOSS: 500 mL. FLUIDS: 1000 mL of crystalloid. FINDINGS: Live-born male, scores 8 and 9, weighing 4100 g. Normal-appearing uterus, tubes, and ovaries. COMPLICATIONS: None known. DISPOSITION: Stable to recovery. BRIEF HISTORY: This is a 33-year-old female, G2, P1-0-0-1, at 39 weeks' gestation. Over the past week, she has had elevated blood pressures in the clinic, but has had negative evaluation for preeclampsia. She presents at 39 weeks' gestation for repeat delivery with risks discussed including bleeding, infection, injury to bowel, bladder, blood vessels, ureters, or other organs; risk of thromboembolic event, risk of anesthesia. Understanding all these risks, she does desire to proceed. DESCRIPTION OF PROCEDURE: With the patient in left tilt position, under adequate spinal analgesia, the abdomen was prepped with chlorhexidine and draped in usual fashion for abdominal surgery. SCDs were in place. Waterman catheter was placed. She received 2 g of Ancef IV and an appropriate time-out was held. After documentation of adequate analgesia, the prior cicatrix was excised and incision was extended through the subcutaneous tissue to the fascia, which was scored transversely in the midline. The fascial incision was extended laterally using curved Wright scissors. The fascia was elevated from the underlying rectus muscle using sharp and blunt dissection. The rectus muscle was using sharp dissection. A finger was placed into the peritoneal cavity. There was no adhesions. Therefore, the incision was extended cephalad and caudad using sharp dissection. The incision was extended using blunt dissection. The Caleb O retractor was placed. The visceroperitoneum over the lower uterine segment was incised to develop an adequate bladder flap. A transverse curvilinear incision was made over the lower uterine segment with a scalpel and extended by blunt dissection. The amniotic membranes were ruptured with an Allis clamp. Clear fluid was noted. The head was delivered via the uterine incision with fundal pressure with subsequent delivery of the 's shoulders and body. The was bulb suctioned by nose and mouth and after the cord had ceased to pulsate, it was doubly clamped and cut. The infant was handed to the nurse in attendance at delivery. The infant is a liveborn male, scores 8 and 9, weighing 9 pounds 1 ounces, 4100 g. Cord blood was collected for cord ABGs as well as routine cord blood sampling. The placenta was removed by manual extraction. The uterus was cleaned with a dry laparotomy tape. The cervix was opened with ring forceps. She received Pitocin after delivery of the and there was good uterine tone. The uterine incision was closed with a running lock suture of 0 Polysorb followed by an imbricating layer of 0 Polysorb. The midline [id number] suture was placed for complete hemostasis. The pericolic gutters and posterior cul-de-sac were cleaned with a wet laparotomy tape. The tubes and ovaries were inspected and appeared normal. The uterine incision was inspected and was hemostatic. The Caleb O retractor was removed. The incision was again inspected and it remained hemostatic. The peritoneum and rectus muscles were loosely approximated in the midline using a running mattress suture of 0 Polysorb. The posterior aspect of the fascia was inspected and was hemostatic. The fascial incision was closed with a running suture of 0 Polysorb. Subcutaneous tissue was irrigated. Any areas of bleeding that were noted were cauterized. The deep subcutaneous tissue was closed with 3- 0 plain, and the skin was closed with subcuticular suture of 3-0 Monocryl followed by Dermabond. Final sponge, needle, and instrument counts were reported as correct. There were no known complications. Mother and baby are in recovery in good condition. KANIKA / LUDIN /[id number]
--- NOTE | 2018-12-05 18:00 | PCM48HPAN ---
Post Anesthesia Note - EVALUATION WITHIN 48HRS OF ANESTHETIC Vital Signs in Normal Range: Yes Patient Participated in Evaluation: Yes Respiratory Function Stable: Yes Airway Patent: Yes Cardiovascular Function Stable: Yes Hydration Status Stable: Yes Pain Control Satisfactory: Yes Nausea and Vomiting Control Satisfactory: Yes Mental Status Recovered: Yes Pulse Rate: 79 SaO2: 95 Resp Rate: 16 Temperature: 36.6 C Blood Pressure: 131/85 Pulse Rate: 79 - COMMENTS/OBSERVATIONS Free Text/Narrative:: Patient doing well. Numbness resolved. VSS. Pain well controlled. No problems noted post-op a this point.
[2018-12-06] MEDS: Ketorolac 30 MG/ML SDV IVPUSH SCH ×2 (02:37→09:52)
[2018-12-06] MEDS: Docusate Sodium 100 MG Cap PO SCH ×2 (09:52→20:50)
--- NOTE | 2018-12-06 10:08 | PCM.PNPP ---
- General Info Date of Service: 12/06/18 (POD#1 repeat LTCS) Functional Status: Reports: Pain Controlled, Other (Pt reports feeling well.) - Review of Systems General: Reports: No Symptoms Pulmonary: Reports: No Symptoms, Other (Pt is deep-breathing without problem.) Cardiovascular: Reports: No Symptoms Gastrointestinal: Reports: No Symptoms Genitourinary: Reports: No Symptoms Musculoskeletal: Reports: No Symptoms Skin: Reports: No Symptoms Neurological: Reports: No Symptoms Psychiatric: Reports: No Symptoms, Other (Pt does not report depressed mood.) - General Info Date of Service: 12/06/18 - Patient Data Vital Signs - Most Recent: Last Vital Signs Temp 36.6 C 12/06/18 07:00 Pulse 88 12/06/18 07:00 Resp 14 12/06/18 07:00 BP 175/88 H 12/06/18 07:00 Pulse Ox 100 12/06/18 07:00 Weight - Most Recent: 117.027 kg (There is a misreported BP currently. Normal BPs) I&O - Last 24 Hours: Intake & Output 12/05/18 12/06/18 12/06/18 22:59 06:59 14:59 Intake Total 500 Output Total 550 1950 Balance -50 -1950 Lab Results - Last 24 Hours: Laboratory Results - last 24 hr 12/06/18 Range/Units 06:13 Hgb 12.2 (12.0-16.0) g/dL Hct 38.2 (36.0-46.0) % Med Orders - Current: Current Medications Hydrocodone Bitart/Acetaminophen (Malone 325-5 Mg) 2 tab PO Q6H PRN PRN Reason: Pain (moderate 4-6) Bisacodyl (Dulcolax) 10 mg RECTAL ONETIME PRN PRN Reason: Constipation Diphenhydramine HCl (Benadryl) 25 mg IVPUSH Q6H PRN PRN Reason: Itching or Nausea Last Admin: 12/05/18 09:28 Dose: 25 mg Docusate Sodium (Colace) 100 mg PO BID [facility] Last Admin: 12/06/18 09:52 Dose: 100 mg Emollient Ointment (Lansinoh Hpa) 0 gm TOP ASDIRECTED PRN PRN Reason: Sore Nipples Fentanyl (Sublimaze) 50 mcg IVPUSH Q1H PRN PRN Reason: Pain (severe 7-10) Lactated Ringer's (Ringers, Lactated) 1,000 mls @ 125 mls/hr IV ASDIRECTED [facility] Last Admin: 12/05/18 11:26 Dose: 125 mls/hr Ibuprofen (Motrin) 800 mg PO Q8H PRN PRN Reason: mild pain or fever Nalbuphine HCl (Nubain) 5 mg IVPUSH ASDIRECTED PRN PRN Reason: Itching Last Admin: 12/05/18 10:31 Dose: 5 mg Ondansetron HCl (Zofran) 4 mg IVPUSH Q4H PRN PRN Reason: Nausea/Vomiting Ondansetron HCl (Zofran) 4 mg IVPUSH Q6H PRN PRN Reason: Nausea Oxycodone/Acetaminophen (Percocet 325-5 Mg) 1 tab PO ONETIME PRN PRN Reason: Pain (moderate 4-6) Oxycodone/Acetaminophen (Percocet 325-5 Mg) 1 tab PO Q4H PRN PRN Reason: Pain (moderate 4-6) Oxycodone/Acetaminophen (Percocet 325-5 Mg) 2 tab PO Q4H PRN PRN Reason: Pain (moderate 4-6) Oxycodone/Acetaminophen (Percocet 325-5 Mg) 2 tab PO Q6H PRN PRN Reason: Pain (moderate 4-6) Discontinued Medications Cefazolin Sodium/Dextrose (Ancef) Confirm Administered Dose 2 gm IV .STK-MED ONE Stop: 12/05/18 08:16 Citric Acid/Sodium Citrate (Bicitra Solution) 30 ml PO ONETIME ONE Stop: 12/05/18 05:32 Diphenhydramine HCl (Benadryl) 25 mg IVPUSH Q4H PRN PRN Reason: Itching Stop: 12/06/18 09:24 Ephedrine Sulfate (Ephedrine Sulfate) Confirm Administered Dose 50 mg .ROUTE .STK-MED ONE Stop: 12/05/18 08:15 Fentanyl (Sublimaze) 50 mcg IVPUSH Q5M PRN PRN Reason: Pain (severe 7-10) Stop: 12/06/18 07:24 Hydromorphone HCl (Dilaudid) 2 mg IVPUSH ONETIME ONE Stop: 12/05/18 07:24 Cefazolin Sodium/Dextrose 2 gm (/ Premix) 50 mls @ 100 mls/hr IV ONETIME ONE Stop: 12/05/18 06:00 Lactated Ringer's (Ringers, Lactated) 1,000 mls @ 500 mls/hr IV BOLUS [facility] Last Admin: 12/05/18 06:17 Dose: 999 mls/hr Oxytocin/Sodium Chloride (Oxytocin 30 Unit/500 Ml-Ns) 30 unit in 500 mls @ 250 mls/hr IV TITRATE [facility] Sodium Chloride (Normal Saline) Confirm Administered Dose 20 mls @ as directed .ROUTE .STK-MED ONE Stop: 12/05/18 08:16 Oxytocin/Sodium Chloride (Oxytocin 30 Unit/500 Ml-Ns) Confirm Administered Dose 30 unit in 500 mls @ as directed .ROUTE .STK-MED ONE Stop: 12/05/18 08:16 Oxytocin/Sodium Chloride (Oxytocin 30 Unit/500 Ml-Ns) Confirm Administered Dose 30 unit in 500 mls @ as directed .ROUTE .STK-MED ONE Stop: 12/05/18 08:38 Ketorolac Tromethamine (Toradol) Confirm Administered Dose 30 mg .ROUTE .STK- MED ONE Stop: 12/05/18 08:27 Ketorolac Tromethamine (Toradol) 30 mg IVPUSH Q6H [facility] Stop: 12/06/18 08:46 Last Admin: 12/06/18 09:52 Dose: 30 mg Meperidine HCl (Demerol) 12.5 mg IVPUSH ONETIME ONE Stop: 12/05/18 07:24 Last Admin: 12/05/18 22:46 Dose: Not Given Morphine Sulfate (Duramorph Pf) Confirm Administered Dose 10 mg .ROUTE .STK-MED ONE Stop: 12/05/18 06:59 Naloxone HCl (Narcan) 0.1 mg IVPUSH ONETIME PRN PRN Reason: Respiratory Depression Stop: 12/06/18 09:24 Octyl Cyanoacrylate (Dermabond Advance) Confirm Administered Dose 2 applic .ROUTE .STK-MED ONE Stop: 12/05/18 07:26 Ondansetron HCl (Zofran) 4 mg IVPUSH ONETIME ONE Stop: 12/05/18 07:24 Last Admin: 12/05/18 08:46 Dose: 4 mg Oxytocin (Pitocin) Confirm Administered Dose 20 unit .ROUTE .STK-MED ONE Stop: 12/05/18 08:09 Phenylephrine HCl (Phenylephrine In Ns 100 Mcg/Ml) Confirm Administered Dose 1 mg .ROUTE .STK-MED ONE Stop: 12/05/18 08:09 Sodium Chloride (Saline Flush) 10 ml FLUSH ASDIRECTED PRN PRN Reason: Keep Vein Open Sodium Chloride (Saline Flush) 2.5 ml FLUSH ASDIRECTED PRN PRN Reason: Keep Vein Open Sodium Chloride (Normal Saline) 10 ml IV ASDIRECTED PRN PRN Reason: IV Use - Infant Interaction Disposition, : in Room with Family Infant Interaction: Holding Feeding: Continues to Breastfeed Support Person: - Recovery Exam Fundal Tone: Firm (Normal exam. Not fully palpated due to body habitus.) Fundal Level: Unable to Assess (Pt currently /abdominal binder on.) Fundal Placement: Midline Lochia Amount: Scant (normal.) Lochia Color: Rubra/Red Perineum Description: Other (see below) (not examined in this woman with c- section) Episiotomy/Laceration: None Bladder Status: Indwelling Catheter in Place Urinary Elimination: Indwelling Catheter - Exam General: Alert, Oriented, Cooperative, No Acute Distress Neck: Supple Lungs: Other (Breathing non-labored. Deep breath without discomfort.) GI/Abdominal Exam: Soft Extremities: Pedal Edema (normal appearing pedal edema for post-op) Skin: Warm, Dry Wound/Incisions: Dressing Dry and Intact Psy/Mental Status: Alert, Normal Affect, Normal Mood - Problem List Review Problem List Initiated/Reviewed/Updated: Yes - Assessment Assessment:: POD#! repeat LTCS. Pt doing well. Continue to increase activity. Remove dressing. - Plan Plan:: Continue post-op cares. D/C tomorrow discussed, and pt agrees.
[2018-12-06] MEDS: Acetaminophen/oxyCODONE 325-5 MG Tab PO PRN ×2 (12:25→20:55)
[2018-12-06] MEDS: Ibuprofen 800 MG Tab PO PRN (16:15)
[2018-12-07] MEDS: Ibuprofen 800 MG Tab PO PRN ×3 (00:36→20:41)
[2018-12-07] MEDS: Acetaminophen/oxyCODONE 325-5 MG Tab PO PRN ×3 (03:44→23:23)
[2018-12-07] MEDS: Docusate Sodium 100 MG Cap PO SCH ×2 (08:13→20:38)
[2018-12-07] MEDS ORDERED: Measles, Mumps & Rubella Vaccine 0.5 ML SDV SUBCUT ONE (09:19)
--- NOTE | 2018-12-07 09:51 | PCM.PNPP ---
- General Info Date of Service: 12/07/18 Functional Status: Reports: Pain Controlled - Review of Systems General: Reports: No Symptoms HEENT: Reports: No Symptoms Pulmonary: Reports: No Symptoms Cardiovascular: Reports: No Symptoms Gastrointestinal: Reports: No Symptoms Genitourinary: Reports: No Symptoms Musculoskeletal: Reports: No Symptoms Skin: Reports: No Symptoms Neurological: Reports: No Symptoms Psychiatric: Reports: No Symptoms - General Info Date of Service: 12/07/18 - Patient Data Vital Signs - Most Recent: Last Vital Signs Temp 36.6 C 12/07/18 07:10 Pulse 92 12/07/18 07:10 Resp 18 12/07/18 07:10 BP 145/92 H 12/07/18 08:16 Pulse Ox 98 12/07/18 07:10 Weight - Most Recent: 117.027 kg (There is a misreported BP currently. Normal BPs) Med Orders - Current: Current Medications Hydrocodone Bitart/Acetaminophen ([place] 325-5 Mg) 2 tab PO Q6H PRN PRN Reason: Pain (moderate 4-6) Bisacodyl (Dulcolax) 10 mg RECTAL ONETIME PRN PRN Reason: Constipation Diphenhydramine HCl (Benadryl) 25 mg IVPUSH Q6H PRN PRN Reason: Itching or Nausea Last Admin: 12/05/18 09:28 Dose: 25 mg Docusate Sodium (Colace) 100 mg PO BID [facility] Last Admin: 12/07/18 08:13 Dose: 100 mg Emollient Ointment (Lansinoh Hpa) 0 gm TOP ASDIRECTED PRN PRN Reason: Sore Nipples Fentanyl (Sublimaze) 50 mcg IVPUSH Q1H PRN PRN Reason: Pain (severe 7-10) Lactated Ringer's (Ringers, Lactated) 1,000 mls @ 125 mls/hr IV ASDIRECTED [place] Last Admin: 12/05/18 11:26 Dose: 125 mls/hr Ibuprofen (Motrin) 800 mg PO Q8H PRN PRN Reason: mild pain or fever Last Admin: 12/07/18 00:36 Dose: 800 mg Labetalol HCl (Normodyne) 200 mg PO BID [facility] Nalbuphine HCl (Nubain) 5 mg IVPUSH ASDIRECTED PRN PRN Reason: Itching Last Admin: 12/05/18 10:31 Dose: 5 mg Ondansetron HCl (Zofran) 4 mg IVPUSH Q4H PRN PRN Reason: Nausea/Vomiting Ondansetron HCl (Zofran) 4 mg IVPUSH Q6H PRN PRN Reason: Nausea Oxycodone/Acetaminophen (Percocet 325-5 Mg) 1 tab PO ONETIME PRN PRN Reason: Pain (moderate 4-6) Oxycodone/Acetaminophen (Percocet 325-5 Mg) 1 tab PO Q4H PRN PRN Reason: Pain (moderate 4-6) Last Admin: 12/06/18 20:55 Dose: 1 tab Oxycodone/Acetaminophen (Percocet 325-5 Mg) 2 tab PO Q4H PRN PRN Reason: Pain (moderate 4-6) Last Admin: 12/07/18 03:44 Dose: 2 tab Oxycodone/Acetaminophen (Percocet 325-5 Mg) 2 tab PO Q6H PRN PRN Reason: Pain (moderate 4-6) Discontinued Medications Cefazolin Sodium/Dextrose (Ancef) Confirm Administered Dose 2 gm IV .STK-MED ONE Stop: 12/05/18 08:16 Citric Acid/Sodium Citrate (Bicitra Solution) 30 ml PO ONETIME ONE Stop: 12/05/18 05:32 Diphenhydramine HCl (Benadryl) 25 mg IVPUSH Q4H PRN PRN Reason: Itching Stop: 12/06/18 09:24 Ephedrine Sulfate (Ephedrine Sulfate) Confirm Administered Dose 50 mg .ROUTE .STK-MED ONE Stop: 12/05/18 08:15 Fentanyl (Sublimaze) 50 mcg IVPUSH Q5M PRN PRN Reason: Pain (severe 7-10) Stop: 12/06/18 07:24 Hydromorphone HCl (Dilaudid) 2 mg IVPUSH ONETIME ONE Stop: 12/05/18 07:24 Last Admin: 12/06/18 12:34 Dose: Not Given Cefazolin Sodium/Dextrose 2 gm (/ Premix) 50 mls @ 100 mls/hr IV ONETIME ONE Stop: 12/05/18 06:00 Lactated Ringer's (Ringers, Lactated) 1,000 mls @ 500 mls/hr IV [facility]OLUS [place] Last Admin: 12/05/18 06:17 Dose: 999 mls/hr Oxytocin/Sodium Chloride (Oxytocin 30 Unit/500 Ml-Ns) 30 unit in 500 mls @ 250 mls/hr IV TITRATE [facility] Sodium Chloride (Normal Saline) Confirm Administered Dose 20 mls @ as directed .ROUTE .STK-MED ONE Stop: 12/05/18 08:16 Oxytocin/Sodium Chloride (Oxytocin 30 Unit/500 Ml-Ns) Confirm Administered Dose 30 unit in 500 mls @ as directed .ROUTE .STK-MED ONE Stop: 12/05/18 08:16 Oxytocin/Sodium Chloride (Oxytocin 30 Unit/500 Ml-Ns) Confirm Administered Dose 30 unit in 500 mls @ as directed .ROUTE .STK-MED ONE Stop: 12/05/18 08:38 Last Admin: 12/06/18 12:34 Dose: Not Given Ketorolac Tromethamine (Toradol) Confirm Administered Dose 30 mg .ROUTE .STK- MED ONE Stop: 12/05/18 08:27 Ketorolac Tromethamine (Toradol) 30 mg IVPUSH Q6H [facility] Stop: 12/06/18 08:46 Last Admin: 12/06/18 09:52 Dose: 30 mg Measles/Mumps/Rubella Vaccine Live (M-M-R Ii Vaccine) 0.5 ml SUBCUT .ONCE ONE Stop: 12/07/18 09:20 Meperidine HCl (Demerol) 12.5 mg IVPUSH ONETIME ONE Stop: 12/05/18 07:24 Last Admin: 12/05/18 22:46 Dose: Not Given Morphine Sulfate (Duramorph Pf) Confirm Administered Dose 10 mg .ROUTE .STK-MED ONE Stop: 12/05/18 06:59 Naloxone HCl (Narcan) 0.1 mg IVPUSH ONETIME PRN PRN Reason: Respiratory Depression Stop: 12/06/18 09:24 Octyl Cyanoacrylate (Dermabond Advance) Confirm Administered Dose 2 applic .ROUTE .STK-MED ONE Stop: 12/05/18 07:26 Ondansetron HCl (Zofran) 4 mg IVPUSH ONETIME ONE Stop: 12/05/18 07:24 Last Admin: 12/05/18 08:46 Dose: 4 mg Oxytocin (Pitocin) Confirm Administered Dose 20 unit .ROUTE .STK-MED ONE Stop: 12/05/18 08:09 Phenylephrine HCl (Phenylephrine In Ns 100 Mcg/Ml) Confirm Administered Dose 1 mg .ROUTE .STK-MED ONE Stop: 12/05/18 08:09 Sodium Chloride (Saline Flush) 10 ml FLUSH ASDIRECTED PRN PRN Reason: Keep Vein Open Sodium Chloride (Saline Flush) 2.5 ml FLUSH ASDIRECTED PRN PRN Reason: Keep Vein Open Sodium Chloride (Normal Saline) 10 ml IV ASDIRECTED PRN PRN Reason: IV Use - Interaction Infant Disposition, : [place] in Room with Family Infant Interaction: Holding Feeding: Continues to Breastfeed Support Person: - Recovery Exam Fundal Tone: Firm Fundal Level: At Umbilicus Fundal Placement: Midline Lochia Amount: Scant Lochia Color: Rubra/Red Perineum Description: Intact, Minimal Bruising/Swelling, Other (see below) Episiotomy/Laceration: None Bladder Status: Voiding Urinary Elimination: Indwelling Catheter, Voided - Exam General: Alert, Oriented, Cooperative, Other (tearful when discussing decision not to discharge today due to elevated BPs) HEENT: Pupils Equal (not examined) Neck: Supple Lungs: Other (breathing comfortably) Cardiovascular: Regular Rate (not examined), Regular Rhythm (not examined) GI/Abdominal Exam: Soft, Other (pfan incision healing well. Fundus firm below umb) Extremities: Pedal Edema, Other (Edema trace to +1) Skin: Warm, Dry, Intact Wound/Incisions: Healing Well Neurological: Other (DTRs normal to slightly brisk, equiv bilat) Psy/Mental Status: Alert, Normal Affect, Normal Mood - Problem List & Annotations (1) Hypertension affecting , delivered, current hospitalization SNOMED Code(s): 19450377, 237061624 Code(s): O16.4 - UNSPECIFIED MATERNAL HYPERTENSION, COMPLICATING CHILDBIRTH Status: Acute Current Visit: Yes - Problem List Review Problem List Initiated/Reviewed/Updated: Yes - My Orders Last 24 Hours: My Active Orders 12/07/18 09:19 Vaccines to be Administered [RC] PER UNIT ROUTINE 12/07/18 21:00 Labetalol [Normodyne] 200 mg PO BID - Assessment Assessment:: POD#2 repeat LTCS. PT with preg HTN. Now, BP elevation noted. Risk factors present. Recommend labetalol 200 BID. Consider d/c tomorrow due to BP elevation and new start of anti-hypertensive med. Pt is tearful, but in agreement. - Plan Plan:: Begin labetalol, and BP evaluation of response. Pt asymptomatic, and physical exam is c/w healthy POD#2. Consider d/c tomorrow.
[2018-12-07] MEDS: Labetalol 100 MG Tab PO SCH ×2 (11:01→20:38)
[2018-12-08] MEDS: Acetaminophen/oxyCODONE 325-5 MG Tab PO PRN ×2 (07:33→12:31)
--- NOTE | 2018-12-08 08:17 | PCM.PNPP ---
<Hazel Lin - Last Filed: 12/08/18 08:13> - General Info Date of Service: 12/08/18 Functional Status: Reports: Pain Controlled, Tolerating Diet, Ambulating, Urinating - Review of Systems General: Denies: Fever, Weakness, Fatigue Pulmonary: Denies: Shortness of Breath, Pleuritic Chest Pain, Cough Cardiovascular: Denies: Chest Pain, Palpitations, Dyspnea on Exertion Gastrointestinal: Denies: Abdominal Pain Genitourinary: Denies: Dysuria - General Info Date of Service: 12/08/18 - Patient Data Vital Signs - Most Recent: Last Vital Signs Temp 36.6 C 12/08/18 07:25 Pulse 99 12/08/18 07:25 Resp 18 12/08/18 07:25 BP 178/99 H 12/08/18 07:25 Pulse Ox 98 12/08/18 07:25 Weight - Most Recent: 117.027 kg (There is a misreported BP currently. Normal BPs) Med Orders - Current: Current Medications Hydrocodone Bitart/Acetaminophen ([place] 325-5 Mg) 2 tab PO Q6H PRN PRN Reason: Pain (moderate 4-6) Bisacodyl (Dulcolax) 10 mg RECTAL ONETIME PRN PRN Reason: Constipation Diphenhydramine HCl (Benadryl) 25 mg IVPUSH Q6H PRN PRN Reason: Itching or Nausea Last Admin: 12/05/18 09:28 Dose: 25 mg Docusate Sodium (Colace) 100 mg PO BID [facility] Last Admin: 12/07/18 20:38 Dose: 100 mg Emollient Ointment (Lansinoh Hpa) 0 gm TOP ASDIRECTED PRN PRN Reason: Sore Nipples Last Admin: 12/07/18 20:41 Dose: 7 gm Fentanyl (Sublimaze) 50 mcg IVPUSH Q1H PRN PRN Reason: Pain (severe 7-10) Lactated Ringer's (Ringers, Lactated) 1,000 mls @ 125 mls/hr IV ASDIRECTED [facility] Last Admin: 12/05/18 11:26 Dose: 125 mls/hr Ibuprofen (Motrin) 800 mg PO Q8H PRN PRN Reason: mild pain or fever Last Admin: 12/07/18 20:41 Dose: 800 mg Labetalol HCl (Normodyne) 200 mg PO BID [place] Last Admin: 12/07/18 20:38 Dose: 200 mg Nalbuphine HCl (Nubain) 5 mg IVPUSH ASDIRECTED PRN PRN Reason: Itching Last Admin: 12/05/18 10:31 Dose: 5 mg Ondansetron HCl (Zofran) 4 mg IVPUSH Q4H PRN PRN Reason: Nausea/Vomiting Ondansetron HCl (Zofran) 4 mg IVPUSH Q6H PRN PRN Reason: Nausea Oxycodone/Acetaminophen (Percocet 325-5 Mg) 1 tab PO ONETIME PRN PRN Reason: Pain (moderate 4-6) Last Admin: 12/07/18 18:47 Dose: 1 tab Oxycodone/Acetaminophen (Percocet 325-5 Mg) 1 tab PO Q4H PRN PRN Reason: Pain (moderate 4-6) Last Admin: 12/06/18 20:55 Dose: 1 tab Oxycodone/Acetaminophen (Percocet 325-5 Mg) 2 tab PO Q4H PRN PRN Reason: Pain (moderate 4-6) Last Admin: 12/08/18 07:33 Dose: 2 tab Oxycodone/Acetaminophen (Percocet 325-5 Mg) 2 tab PO Q6H PRN PRN Reason: Pain (moderate 4-6) Discontinued Medications Cefazolin Sodium/Dextrose (Ancef) Confirm Administered Dose 2 gm IV .STK-MED ONE Stop: 12/05/18 08:16 Citric Acid/Sodium Citrate (Bicitra Solution) 30 ml PO ONETIME ONE Stop: 12/05/18 05:32 Diphenhydramine HCl (Benadryl) 25 mg IVPUSH Q4H PRN PRN Reason: Itching Stop: 12/06/18 09:24 Ephedrine Sulfate (Ephedrine Sulfate) Confirm Administered Dose 50 mg .ROUTE .STK-MED ONE Stop: 12/05/18 08:15 Fentanyl (Sublimaze) 50 mcg IVPUSH Q5M PRN PRN Reason: Pain (severe 7-10) Stop: 12/06/18 07:24 Hydromorphone HCl (Dilaudid) 2 mg IVPUSH ONETIME ONE Stop: 12/05/18 07:24 Last Admin: 12/06/18 12:34 Dose: Not Given Cefazolin Sodium/Dextrose 2 gm (/ Premix) 50 mls @ 100 mls/hr IV ONETIME ONE Stop: 12/05/18 06:00 Lactated Ringer's (Ringers, Lactated) 1,000 mls @ 500 mls/hr IV BOLUS [facility] Last Admin: 12/05/18 06:17 Dose: 999 mls/hr Oxytocin/Sodium Chloride (Oxytocin 30 Unit/500 Ml-Ns) 30 unit in 500 mls @ 250 mls/hr IV TITRATE [facility] Sodium Chloride (Normal Saline) Confirm Administered Dose 20 mls @ as directed .ROUTE .STK-MED ONE Stop: 12/05/18 08:16 Oxytocin/Sodium Chloride (Oxytocin 30 Unit/500 Ml-Ns) Confirm Administered Dose 30 unit in 500 mls @ as directed .ROUTE .STK-MED ONE Stop: 12/05/18 08:16 Oxytocin/Sodium Chloride (Oxytocin 30 Unit/500 Ml-Ns) Confirm Administered Dose 30 unit in 500 mls @ as directed .ROUTE .STK-MED ONE Stop: 12/05/18 08:38 Last Admin: 12/06/18 12:34 Dose: Not Given Ketorolac Tromethamine (Toradol) Confirm Administered Dose 30 mg .ROUTE .STK- MED ONE Stop: 12/05/18 08:27 Ketorolac Tromethamine (Toradol) 30 mg IVPUSH Q6H [facility] Stop: 12/06/18 08:46 Last Admin: 12/06/18 09:52 Dose: 30 mg Measles/Mumps/Rubella Vaccine Live (M-M-R Ii Vaccine) 0.5 ml SUBCUT .ONCE ONE Stop: 12/07/18 09:20 Meperidine HCl (Demerol) 12.5 mg IVPUSH ONETIME ONE Stop: 12/05/18 07:24 Last Admin: 12/05/18 22:46 Dose: Not Given Morphine Sulfate (Duramorph Pf) Confirm Administered Dose 10 mg .ROUTE .STK-MED ONE Stop: 12/05/18 06:59 Naloxone HCl (Narcan) 0.1 mg IVPUSH ONETIME PRN PRN Reason: Respiratory Depression Stop: 12/06/18 09:24 Octyl Cyanoacrylate (Dermabond Advance) Confirm Administered Dose 2 applic .ROUTE .STK-MED ONE Stop: 12/05/18 07:26 Ondansetron HCl (Zofran) 4 mg IVPUSH ONETIME ONE Stop: 12/05/18 07:24 Last Admin: 12/05/18 08:46 Dose: 4 mg Oxytocin (Pitocin) Confirm Administered Dose 20 unit .ROUTE .STK-MED ONE Stop: 12/05/18 08:09 Phenylephrine HCl (Phenylephrine In Ns 100 Mcg/Ml) Confirm Administered Dose 1 mg .ROUTE .STK-MED ONE Stop: 12/05/18 08:09 Sodium Chloride (Saline Flush) 10 ml FLUSH ASDIRECTED PRN PRN Reason: Keep Vein Open Sodium Chloride (Saline Flush) 2.5 ml FLUSH ASDIRECTED PRN PRN Reason: Keep Vein Open Sodium Chloride (Normal Saline) 10 ml IV ASDIRECTED PRN PRN Reason: IV Use - Infant Interaction Infant Disposition, : in Room with Family Infant Interaction: Holding Infant Feeding: Continues to Breastfeed Support Person: - Recovery Exam Fundal Tone: Firm Fundal Level: At Umbilicus Fundal Placement: Midline Lochia Amount: Scant Lochia Color: Rubra/Red Perineum Description: Intact, Minimal Bruising/Swelling, Other (see below) Episiotomy/Laceration: None Bladder Status: Voiding Urinary Elimination: Indwelling Catheter, Voided - Exam General: Alert, Oriented Neck: Supple Lungs: Clear to Auscultation, Normal Respiratory Effort Cardiovascular: Regular Rate, Regular Rhythm GI/Abdominal Exam: Normal Bowel Sounds, Soft, Non-Tender, No Distention, No Mass Extremities: Normal Inspection, Normal Range of Motion, Non-Tender, No Pedal Edema, Normal Capillary Refill Skin: Warm, Dry, Intact - Problem List & Annotations (1) delivery delivered SNOMED Code(s): 194375407 Code(s): O82 - ENCOUNTER FOR DELIVERY WITHOUT INDICATION Status: Acute Current Visit: No - Problem List Review Problem List Initiated/Reviewed/Updated: Yes - Assessment Assessment:: POD#3 repeat LTCS. Started on Labatalol 200 mg PO BID for gestational hypertension. BPs normazling, but elevated reading this morning prior to receiving pain medication. Will continue to monitor and possible discharge home later today. - Plan Plan:: Will continue to monitor BPs. Denies [place], vision changes, or mid-epigastric pain. Possible discharge later today. Discharge instructions reviewed. <Shellie Casiano Georges - Last Filed: 12/08/18 09:49> - Patient Data Vital Signs - Most Recent: Last Vital Signs Temp 36.6 C 12/08/18 07:25 Pulse 87 12/08/18 08:50 Resp 18 12/08/18 07:25 BP 143/86 H 12/08/18 08:50 Pulse Ox 98 12/08/18 07:25 Med Orders - Current: Current Medications Hydrocodone Bitart/Acetaminophen ([place] 325-5 Mg) 2 tab PO Q6H PRN PRN Reason: Pain (moderate 4-6) Bisacodyl (Dulcolax) 10 mg RECTAL ONETIME PRN PRN Reason: Constipation Diphenhydramine HCl (Benadryl) 25 mg IVPUSH Q6H PRN PRN Reason: Itching or Nausea Last Admin: 12/05/18 09:28 Dose: 25 mg Docusate Sodium (Colace) 100 mg PO BID [facility] Last Admin: 12/08/18 09:04 Dose: 100 mg Emollient Ointment (Lansinoh Hpa) 0 gm TOP ASDIRECTED PRN PRN Reason: Sore Nipples Last Admin: 12/07/18 20:41 Dose: 7 gm Fentanyl (Sublimaze) 50 mcg IVPUSH Q1H PRN PRN Reason: Pain (severe 7-10) Lactated Ringer's (Ringers, Lactated) 1,000 mls @ 125 mls/hr IV ASDIRECTED [facility] Last Admin: 12/05/18 11:26 Dose: 125 mls/hr Ibuprofen (Motrin) 800 mg PO Q8H PRN PRN Reason: mild pain or fever Last Admin: 12/07/18 20:41 Dose: 800 mg Labetalol HCl (Normodyne) 200 mg PO BID [facility] Last Admin: 12/08/18 08:50 Dose: 200 mg Labetalol HCl (Normodyne) 200 mg PO BID [facility] Nalbuphine HCl (Nubain) 5 mg IVPUSH ASDIRECTED PRN PRN Reason: Itching Last Admin: 12/05/18 10:31 Dose: 5 mg Ondansetron HCl (Zofran) 4 mg IVPUSH Q4H PRN PRN Reason: Nausea/Vomiting Ondansetron HCl (Zofran) 4 mg IVPUSH Q6H PRN PRN Reason: Nausea Oxycodone/Acetaminophen (Percocet 325-5 Mg) 1 tab PO ONETIME PRN PRN Reason: Pain (moderate 4-6) Last Admin: 12/07/18 18:47 Dose: 1 tab Oxycodone/Acetaminophen (Percocet 325-5 Mg) 1 tab PO Q4H PRN PRN Reason: Pain (moderate 4-6) Last Admin: 12/06/18 20:55 Dose: 1 tab Oxycodone/Acetaminophen (Percocet 325-5 Mg) 2 tab PO Q4H PRN PRN Reason: Pain (moderate 4-6) Last Admin: 12/08/18 07:33 Dose: 2 tab Oxycodone/Acetaminophen (Percocet 325-5 Mg) 2 tab PO Q6H PRN PRN Reason: Pain (moderate 4-6) Discontinued Medications Cefazolin Sodium/Dextrose (Ancef) Confirm Administered Dose 2 gm IV .STK-MED ONE Stop: 12/05/18 08:16 Citric Acid/Sodium Citrate (Bicitra Solution) 30 ml PO ONETIME ONE Stop: 12/05/18 05:32 Diphenhydramine HCl (Benadryl) 25 mg IVPUSH Q4H PRN PRN Reason: Itching Stop: 12/06/18 09:24 Ephedrine Sulfate (Ephedrine Sulfate) Confirm Administered Dose 50 mg .ROUTE .STK-MED ONE Stop: 12/05/18 08:15 Fentanyl (Sublimaze) 50 mcg IVPUSH Q5M PRN PRN Reason: Pain (severe 7-10) Stop: 12/06/18 07:24 Hydromorphone HCl (Dilaudid) 2 mg IVPUSH ONETIME ONE Stop: 12/05/18 07:24 Last Admin: 12/06/18 12:34 Dose: Not Given Cefazolin Sodium/Dextrose 2 gm (/ Premix) 50 mls @ 100 mls/hr IV ONETIME ONE Stop: 12/05/18 06:00 Lactated Ringer's (Ringers, Lactated) 1,000 mls @ 500 mls/hr IV [facility]OLUS [place] Last Admin: 12/05/18 06:17 Dose: 999 mls/hr Oxytocin/Sodium Chloride (Oxytocin 30 Unit/500 Ml-Ns) 30 unit in 500 mls @ 250 mls/hr IV TITRATE [place] Sodium Chloride (Normal Saline) Confirm Administered Dose 20 mls @ as directed .ROUTE .STK-MED ONE Stop: 12/05/18 08:16 Oxytocin/Sodium Chloride (Oxytocin 30 Unit/500 Ml-Ns) Confirm Administered Dose 30 unit in 500 mls @ as directed .ROUTE .STK-MED ONE Stop: 12/05/18 08:16 Oxytocin/Sodium Chloride (Oxytocin 30 Unit/500 Ml-Ns) Confirm Administered Dose 30 unit in 500 mls @ as directed .ROUTE .STK-MED ONE Stop: 12/05/18 08:38 Last Admin: 12/06/18 12:34 Dose: Not Given Ketorolac Tromethamine (Toradol) Confirm Administered Dose 30 mg .ROUTE .STK- MED ONE Stop: 12/05/18 08:27 Ketorolac Tromethamine (Toradol) 30 mg IVPUSH Q6H [facility] Stop: 12/06/18 08:46 Last Admin: 12/06/18 09:52 Dose: 30 mg Measles/Mumps/Rubella Vaccine Live (M-M-R Ii Vaccine) 0.5 ml SUBCUT .ONCE ONE Stop: 12/07/18 09:20 Meperidine HCl (Demerol) 12.5 mg IVPUSH ONETIME ONE Stop: 12/05/18 07:24 Last Admin: 12/05/18 22:46 Dose: Not Given Morphine Sulfate (Duramorph Pf) Confirm Administered Dose 10 mg .ROUTE .STK-MED ONE Stop: 12/05/18 06:59 Naloxone HCl (Narcan) 0.1 mg IVPUSH ONETIME PRN PRN Reason: Respiratory Depression Stop: 12/06/18 09:24 Octyl Cyanoacrylate (Dermabond Advance) Confirm Administered Dose 2 applic .ROUTE .STK-MED ONE Stop: 12/05/18 07:26 Ondansetron HCl (Zofran) 4 mg IVPUSH ONETIME ONE Stop: 12/05/18 07:24 Last Admin: 12/05/18 08:46 Dose: 4 mg Oxytocin (Pitocin) Confirm Administered Dose 20 unit .ROUTE .STK-MED ONE Stop: 12/05/18 08:09 Phenylephrine HCl (Phenylephrine In Ns 100 Mcg/Ml) Confirm Administered Dose 1 mg .ROUTE .STK-MED ONE Stop: 12/05/18 08:09 Sodium Chloride (Saline Flush) 10 ml FLUSH ASDIRECTED PRN PRN Reason: Keep Vein Open Sodium Chloride (Saline Flush) 2.5 ml FLUSH ASDIRECTED PRN PRN Reason: Keep Vein Open Sodium Chloride (Normal Saline) 10 ml IV ASDIRECTED PRN PRN Reason: IV Use - My Orders Last 24 Hours: My Active Orders 12/08/18 09:45 Labetalol [Normodyne] 200 mg PO BID - Assessment Assessment:: patient was seen and examined by me. BP is still [place] after labetalol this am, increase labetalol to 400 mg BID, recheck BP if stable, then can dismiss to home on 400 mg BID labetalol with BP check in the clinic before the end of the week. Patent agrees and expresses understanding.
[2018-12-08] MEDS: Labetalol 100 MG Tab PO SCH (08:50)
[2018-12-08] MEDS: Docusate Sodium 100 MG Cap PO SCH (09:04)
[2018-12-08] MEDS ORDERED: Labetalol 100 MG Tab PO SCH (09:45)
[2018-12-08 10:01] VITALS: BP 144/87
[2018-12-08] MEDS: Ibuprofen 800 MG Tab PO PRN (10:13)
== END 2018-12-08 14:15 | disposition critical access hospital (66) | DRG 540 ==
LOC: MW.OB 05:23
PROVIDERS: ADMIT Obstetrics & Gynecology; ATTEND Obstetrics & Gynecology
PROC: 6A550ZT Pheresis of Cord Blood Stem Cells, Single (ICD-10-PCS; principal; 2018-12-05)
PROC: 10D00Z1 Extraction of Products of Conception, Low, Open Approach (ICD-10-PCS; principal; 2018-12-05)
PROC: 3E0234Z Introduction of Serum, Toxoid and Vaccine into Muscle, Percutaneous Approach (ICD-10-PCS; 2018-12-08)
DX: O34.211 Maternal care for low transverse scar from previous cesarean delivery (principal); N85.8 Other specified noninflammatory disorders of uterus; O99.214 Obesity complicating childbirth; E66.9 Obesity, unspecified; O13.4 Gestational [pregnancy-induced] hypertension without significant proteinuria, complicating childbirth; Z3A.39 39 weeks gestation of pregnancy; Z37.0 Single live birth; Z23 Encounter for immunization
CPT/HCPCS: 36415; 82803; 85014; 85018; 85027; 86850; 86900; 86901; 90707; A9270-GY; J0690; J1200; J1885; J2270; J2300; J2370; J2405; J2590; J7120

== ENCOUNTER 2022-02-02 02:49 | Inpatient (IN) | payer BC ==
[2022-02-02] MEDS ORDERED: Sodium Chloride 0.9% 2.5 ML Syringe FLUSH PRN (15:19)
[2022-02-02] MEDS ORDERED: Sodium Chloride 0.9% 10 ML Syringe FLUSH PRN (15:19)
[2022-02-02] MEDS ORDERED: Sodium Chloride 0.9% 20 ML SDV IV PRN (15:19)
[2022-02-02] MEDS ORDERED: fentaNYL 100 MCG/2 ML SDV ONE (15:19)
[2022-02-02] MEDS ORDERED: Morphine PF 10 MG/10 ML SDV ONE (15:20)
[2022-02-02] MEDS ORDERED: ceFAZolin 1 GM Vial ONE ×2 (15:21)
[2022-02-02] MEDS ORDERED: Ropivacaine 0.5% 5 MG/ML 30 ML SDV ONE ×2 (15:21)
[2022-02-02] MEDS ORDERED: Ondansetron 4 MG/2 ML SDV ONE ×2 (15:21)
[2022-02-02] MEDS ORDERED: Phenylephrine 1% 10 MG/ML SDV ONE (15:21)
[2022-02-02] MEDS ORDERED: Lidocaine 2% 100 MG/5 ML Syringe ONE (15:22)
[2022-02-02] MEDS ORDERED: Oxytocin 10 Units/1 ML SDV ONE ×3 (15:22)
[2022-02-02] MEDS ORDERED: Labetalol 100 MG/20 ML MDV IVPUSH PRN (15:51)
[2022-02-02] MEDS ORDERED: Lactated Ringers 1,000 ML IV SCH (16:00)
[2022-02-02] MEDS ORDERED: Calcium Gluconate 10% 1 GM/10 ML SDV IV PRN (16:01)
[2022-02-02] MEDS ORDERED: Magnesium Sulfate/Water 4 GM in Premix Bag 1 BAG IV ONE (16:01)
[2022-02-02 16:24] LABS: BLOOD UREA NITROGEN,BUN 7 mg/dL (7.0-18.0); CARBON DIOXIDE,CO2 18.4 mmol/L (21.0-32.0); CHLORIDE,CL 104 mmol/L (98-107); GLUCOSE RANDOM 73 mg/dL (74-106); SODIUM,NA 138 mmol/L (136-145)
[2022-02-02] MEDS ORDERED: Sodium Chloride 0.9% 1,000 ML IV SCH (16:30)
[2022-02-02] MEDS: Magnesium Sulfate/Water 20 GM/500 ML BAG IV SCH (16:45)
[2022-02-02] MEDS ORDERED: Octyl 2-Cyanoacrylate 1 Tube ONE (16:53)
[2022-02-02] MEDS ORDERED: Metoclopramide 10 MG/2 ML SDV ONE ×2 (16:59→17:35)
[2022-02-02] MEDS ORDERED: diphenhydrAMINE 50 MG/ML SDV IVPUSH PRN ×2 (18:16→23:20)
[2022-02-02] MEDS ORDERED: Metoclopramide 10 MG/2 ML SDV IVPUSH PRN (18:16)
[2022-02-02] MEDS ORDERED: Albuterol 0.083% 2.5 MG/3 ML Neb Soln NEB PRN (18:16)
[2022-02-02] MEDS ORDERED: ePHEDrine 50 MG/ML SDV IVPUSH PRN (18:16)
[2022-02-02] MEDS ORDERED: fentaNYL 100 MCG/2 ML SDV IVPUSH PRN ×2 (18:16)
[2022-02-02] MEDS ORDERED: Naloxone 0.4 MG/ML SDV IVPUSH PRN (18:16)
[2022-02-02] MEDS ORDERED: Ondansetron 4 MG/2 ML SDV IVPUSH PRN ×3 (18:16→23:20)
[2022-02-02] MEDS ORDERED: Morphine 4 MG/ML VIAL IVPUSH PRN (18:16)
[2022-02-02] MEDS ORDERED: HYDROmorphone 1 MG/ML Syringe IVPUSH PRN (18:16)
[2022-02-02] MEDS ORDERED: Tranexamic Acid 1,000 MG in Sodium Chloride 0.9% 100 ML IV PRN (23:20)
[2022-02-02] MEDS ORDERED: Bisacodyl 10 MG Supp RECTAL PRN (23:20)
[2022-02-02] MEDS ORDERED: Ibuprofen 800 MG Tab PO PRN (23:20)
[2022-02-02] MEDS ORDERED: Acetaminophen/oxyCODONE 325-5 MG Tab PO PRN ×2 (23:20)
[2022-02-02] MEDS ORDERED: Lanolin 100% Cream 7 GM Tube TOP PRN (23:20)
[2022-02-03] MEDS: Ketorolac 30 MG/ML SDV IVPUSH SCH ×4 (01:41→21:00)
[2022-02-03] MEDS: Magnesium Sulfate/Water 20 GM/500 ML BAG IV SCH ×2 (02:44→13:47)
[2022-02-03] MEDS ORDERED: Sodium Chloride 0.9% 100 ML ONE (06:39)
[2022-02-03 07:46] LABS: BLOOD UREA NITROGEN,BUN 8 mg/dL (7.0-18.0); CHLORIDE,CL 102 mmol/L (98-107); GLUCOSE RANDOM 105 mg/dL (74-106); POTASSIUM,K 4.6 mmol/L (3.5-5.1); SODIUM,NA 132 mmol/L (136-145)
[2022-02-03] MEDS: Docusate Sodium 100 MG Cap PO SCH ×2 (08:29→21:00)
[2022-02-04] MEDS: Ketorolac 30 MG/ML SDV IVPUSH SCH (02:35)
[2022-02-04] MEDS ORDERED: Ibuprofen 800 MG Tab PO PRN (08:30)
[2022-02-04] MEDS: Acetaminophen/oxyCODONE 325-5 MG Tab PO PRN ×2 (08:49→14:49)
[2022-02-04] MEDS: Docusate Sodium 100 MG Cap PO SCH (08:49)
[2022-02-04 09:06] VITALS: BP 121/88; PULSE 106
== END 2022-02-04 18:30 | disposition home or self-care (01) | DRG 540 ==
LOC: MW.OB 02:49 → MW.OBCHECK 02:49 → MW.OB 16:02 → MW.OBCHECK 16:48 → OBSVTOIN 17:28 → MW.OB 22:22
PROVIDERS: ADMIT Obstetrics & Gynecology; ATTEND Obstetrics & Gynecology
PROC: 10D00Z1 Extraction of Products of Conception, Low, Open Approach (ICD-10-PCS; principal; 2022-02-02)
DX: O13.4 Gestational [pregnancy-induced] hypertension without significant proteinuria, complicating childbirth (principal); Z37.0 Single live birth; O34.211 Maternal care for low transverse scar from previous cesarean delivery; O99.214 Obesity complicating childbirth; Z20.822 Contact with and (suspected) exposure to COVID-19; Z3A.39 39 weeks gestation of pregnancy
CPT/HCPCS: 36415; 59025; 80053; 82803; 83735; 84550; 85014; 85018; 85027; 85384; 85610; 85730; 86850; 86900; 86901; 86920; A9270-GY; J0131; J0690; J1885; J2274; J2370; J2405; J2590; J2765; J2795; J3010; J3475; J3490; J7030; J7120; U0002